=== PATIENT | male | born 1950 | race Caucasian/White ===

== ENCOUNTER 2025-03-07 10:33 | Outpatient (CLI) | payer MEDICARE ==
[~2025-03-07 10:33] MED LIST: CYCL-394 PO; HYDR-3965 PO
--- NOTE | 2025-03-08 05:26 | RADIOLOGY REPORT ---
PROCEDURE: MR MRI LUMBAR SPINE INDICATION: LOW BACK PAIN, UNSPECIFIED Exam Date: 03/07/2025 10:53 AM COMPARISON: DI LUMBAR SPINE LIMITED on DOS: 02/27/25 TECHNIQUE: MRI lumbar spine without intravenous contrast. FINDINGS: Lumbar lordosis is maintained. CONUS: Conus medullaris terminates at the L1-L2 level, demonstrates normal signal. CAUDA EQUINA: Unremarkable. OSSEOUS STRUCTURES: Vertebral body height is well maintained without evidence of a recent compression fracture. ALIGNMENT: No vertebral body listhesis is present. BONE MARROW: Schmorl's nodes along the endplates of the L3, L5, S1 vertebrae. The MR signal from the structure of the vertebrae is heterogeneous due to degenerative-dystrophic changes. Marginal endplate osteophytic spurring is noted at T12-L1, L1-L2, L2-L3, L3-L4, L4-L5 and L5-S1, more pronounced along the anterolateral contours of the vertebrae. PARASPINAL SOFT TISSUES: Moderate edema of the subcutaneous fat is determined on the posterior surface at the level L3-S4. A weak, unevenly expressed swelling of the prevertebral tissue at the level of L2-L5 is also noted. DISCS: Disc desiccation at T12-L1, L1-L2, L2-L3, L3-L4, L4-L5 and L5-S1. Uneven loss of intervertebral disc height at the L1-L2, L2-L3, L3-L4, L4- L5 and L5-S1 levels, predominantly in the posterior regions. Following levels detailed below: T12-L1: Central disc protrusion measured 3.1mm in anteroposterior dimension. Mild spinal canal stenosis. No neural foraminal stenosis. Mild facet arthrosis. L1-2: No spinal canal or neural foraminal stenosis. Mild facet arthrosis. L2-3: Left foraminal disc protrusion measured 4.6mm in anteroposterior dimension. No spinal canal or neural foraminal stenosis. Mild facet arthrosis. L3-4: 3.1mm diffuse disc bulge. Mild spinal canal stenosis. Mild bilateral subarticular zone stenosis. Mild bilateral foraminal stenosis. Mild facet arthrosis. L4-5: diffuse disc bulge with central disc extrusion measured 4.6mm in anteroposterior dimension with 3.3mm of caudal extension. Mild spinal canal stenosis. Moderate right and mild left subarticular zone stenosis. Mild facet arthrosis. L5-S1: diffuse disc bulge with central disc extrusion measured 6.3mm in anteroposterior dimension. Mild spinal canal stenosis. Mild left and severe right foraminal stenosis with potential right exiting L5 nerve root compression. Severe facet arthrosis, more pronounced on the right. IMPRESSION: 1. L5-S1: diffuse disc bulge with central disc extrusion with severe right foraminal stenosis and potential right exiting L5 nerve root compression; severe facet arthrosis, more pronounced on the right. 2. L4-5: diffuse disc bulge with central disc extrusion with slight caudal extension with moderate right subarticular zone stenosis. 3. L2-L3: left foraminal disc protrusion; L3-L4: diffuse disc bulge. 4. Moderate edema of the subcutaneous fat on the posterior surface at the level L3-S4 and mild prevertebral tissue swelling at L2-L5. 5. Multilevel degenerative changes with disc height loss, Schmorl's nodes, and marginal endplate osteophytic spurring, more pronounced along the anterolateral contours of the vertebrae.
== END 2025-03-07 23:59 | disposition home or self-care (01) ==
LOC: MRI 10:33
PROVIDERS: ATTEND Student in an Organized Health Care Education/Training Program
DX: M51.17 Intervertebral disc disorders with radiculopathy, lumbosacral region (principal); M54.50 Low back pain, unspecified; M51.47 Schmorl's nodes, lumbosacral region; M48.07 Spinal stenosis, lumbosacral region; M47.27 Other spondylosis with radiculopathy, lumbosacral region
CPT/HCPCS: 72148